=== PATIENT | female | born 1940 | race Caucasian/White ===

== ENCOUNTER 2017-05-02 13:34 | Inpatient (IN) | payer OTHER, BC ==
[~2017-05-02] VITALS: Ht 154.9 cm; Wt 71.6 kg
--- NOTE | 2017-05-02 14:03 | DIAGNOSTIC IMAGING REPORT ---
PROCEDURE: CT HEAD WITHOUT CONTRAST INDICATION: MENTAL STATUS CHANGE TECHNIQUE: Noncontrast axial images with sagittal and coronal reformations. COMPARISON: None. FINDINGS: There is moderate old small vessel disease of the white matter with a an old infarct in the right parietal cortex. Brain and ventricles are otherwise normal. No evidence of an acute process or hemorrhage. There is a 10 mm calcification along the inner table of the right frontal bone most likely representing a partially calcified meningioma (versus exostosis). Sinuses and mastoids are normal. IMPRESSION: 1. 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 2. There is a 10 mm calcification inner table of the right frontal bone which may represent a meningioma or exostosis. 3. No evidence of acute process. 4. Findings discussed with Dr. Gerardo Wiggins at [address] scans at this facility use dose modulation, iterative reconstruction, and/or weight-based dosing when appropriate to reduce radiation dose to as low as reasonably achievable.
--- NOTE | 2017-05-02 16:05 | DIAGNOSTIC IMAGING REPORT ---
PROCEDURE: XR CHEST 1 VIEW INDICATION: CHEST PAIN TECHNIQUE: Portable AP view (1430 hours). COMPARISON: None. FINDINGS: Lungs are clear. Heart and mediastinum are normal with tortuous descending thoracic aorta. Thorax is normal. IMPRESSION: 1. Negative chest (tortuous descending thoracic aorta) 2. Findings discussed with Dr. Wiggins.
--- NOTE | 2017-05-02 16:11 | ED ORDER SUMMARY ---
..... Patient: ERIC LUNDBERG OrderSheet [facility] VisitID: [id number] [place] [address] 77y, F Registration Date/Time: 05/02/2017 ORDER SHEET Weight: 69 kg (measured) Allergies: GENERAL ORDERS: CT Head wo Cont Urgent (13:45 05/02/2017 Iftikhar BONILLA) (13:51 DMacristianarka R.N.) Security Operations Engineer (Continuous) (13:46 05/02/2017 Iftikhar BONILLA) (13:51 DMacristianarka R.N.) Cardiac Panel Stat (13:46 05/02/2017 Iftikhar BONLILA) (13:51 DMacristianarka R.N.) PTT Urgent (13:46 05/02/2017 Iftikhar BONILLA) (13:51 DMacristianarka R.N.) PT with INR Urgent (13:46 05/02/2017 Iftikhar BONILLA) (13:51 Whitneya R.N.) BNP Urgent (13:46 05/02/2017 Iftikhar BONILLA) (13:51 Angiearka R.N.) Oxygen (2 L/min) (NC) (13:46 05/02/2017 Iftikhar BONILLA) (13:51 Whitneya R.N.) Pulse oximeter (13:46 05/02/2017 Iftikhar BONILLA) (13:51 Angiearka R.N.) EKG - ER Stat (13:46 05/02/2017 Iftikhar BONILLA) (13:51 Efrain R.N.) Chest 1V Urgent (14:05/02/2017 Iftikhar BONILLA) (Ack 14:13 Mireya) (15:47 Tru) Lipase Urgent (14:05/02/2017 Iftikhar BONILLA) (14:11 DMacristianarka R.N.) Amylase Urgent (14:05/02/2017 Iftikhar BONILLA) (14:11 DMaziarka R.N.) TSH Urgent (14:05/02/2017 Iftikhar BONILLA) (14:11 DMaziarka R.N.) CRP Urgent (14:07 05/02/2017 Iftikhar BONILLA) (14:11 Whitneya R.N.) ESR Urgent (14:07 05/02/2017 Iftikhar BONILLA) (14:11 Efrain R.N.) Lactate, Serum Urgent (14:07 05/02/2017 Iftikhar BONILLA) (Ack 14:14 Mireya) (14:26 DMamariaha R.N.) PCT (Procalcitonin) Urgent (14:07 05/02/2017 Iftikhar BONILLA) (14:10 Efrain R.N.) UA-Culture if indicated Urgent (14:20 05/02/2017 Iftikhar BONILLA) (Ack 14:22 Mireya) Urine Drug Screen Urgent (14:20 05/02/2017 Iftikhar BONILLA) (Ack 14:22 Mireya) MEDICATION ORDERS: IV FLUIDS: IV Saline Lock (13:46 05/02/2017 Iftikhar BONILLA) (Ack 13:55 Efrain R.N.) IV NS with Normal Saline 1 Liter: initial bolus 500 mL (1000 mL/hr), then 150 mL/hr for X1 (NOW) (14:15 05/02/2017 LAbmaik R.N. verbal order read back to Iftikhar BONILLA) (14:17 LAbmaik R.N.) ORDER SHEET NOTES: [Electronically signed by Gerardo Wiggins MD (18:06 05/02/2017)] [Electronically signed by Cris Alberto R.N. (18:11 05/02/2017)] [Electronically locked/signed by Cris Alberto R.N. (18:11 05/02/2017)]
--- NOTE | 2017-05-02 16:11 | ED NURSING NOTES ---
Clinical Report - Nurses [place] [address] [place] [address] 05/02/2017 13:36 Patient: ERIC LUNDBERG TRIAGE Triage time 1333. Acuity: LEVEL 2. Chief Complaint: WEAKNESS and (found unresponsive upon medic arrival. Became responsive but lethargic). --13:43 Martina Valdez R.N. 13:39 05/02/17. BP: 89/63. HR: 64. RR: 14. O2 saturation: 98%. Temp: 97.6 F. Pain level now 0/10. --13:43 Martina Valdez R.N. Weight: 69 kg measured. Height/Length: 61 inches Estimated. BMI: 28.8. --13:45 Martina Valdez R.N. Medications Namenda XR Oral. --13:56 Cris Alberto R.N. Pantoprazole Sodium Oral (Tablet Delayed Release 40 mg) 1 tablet, daily. --13:57 Cris Alberto R.N. Donepezil HCl Oral (Tablet 10 mg) 1 tablet. --13:57 Cris Alberto R.N. Losartan Potassium Oral (Tablet 50 mg) 1 tablet, daily. --13:58 Cris Alberto R.N. Carvedilol Phosphate ER Oral 25mg, morning and bedtime. --13:58 Cris Alberto R.N. Mirtazapine Oral (Tablet 15 mg) 1 tablet, at bedtime. --14:00 Cris Alberto R.N. Atorvastatin Calcium Oral (Tablet 80 mg) 1 tablet, daily. --14:00 Cris Alberto R.N. Xarelto Oral (Tablet 15 mg) 1 tablet. --14:01 Cris Alberto R.N. Cranberry Oral 4200 mg, daily. --14:01 Cris Alberto R.N. History Arrived by EMS. Historian: EMS. This started just prior to arrival. She has had altered mental status and weakness. PAST MEDICAL HX: Stroke. --13:43 Martina Valdez R.N. PAST MEDICAL HX: Hypertension. No history of diabetes mellitus. SOCIAL HX: Never smoker. No alcohol use or drug use. --13:48 Martina Valdez R.N. SOCIAL HX: ( Heart rate has been between 40-68 since she has been in the ED.). --16:06 Martina Valdez R.N. PROBLEMS: TIA - Transient Ischemic Attack. Tia. Stroke. --13:42 Martina Valdez R.N. ADDITIONAL SURGERIES: no known surgeries. PHYSICAL ASSESSMENT To room via stretcher. GENERAL / NEURO / PSYCH: Appears in distress. Decreased awareness. She has had weakness of the left arm. HEENT: No facial asymmetry noted. No signs of head trauma. --13:45 Martina Valdez R.N. NURSING PROGRESS NOTES Patient gowned. Call light placed in reach. Side rails up x 2. --13:46 Martina Valdez R.N. 13:42 05/02/2017 Site #1 started via IV in the left forearm with an 20g angiocath, with aseptic technique and good blood return; two attempts. Blood drawn: rainbow set. Labeled in the presence of the patient and sent to the lab (Per Emilia Whyte). --13:52 Martina Valdez R.N. 13:52 05/02/2017 Site #2 started via IV in the right antecubital space with an 18g angiocath; one attempt. Saline lock flushed with 10 mL saline. --13:53 Martina Valdez R.N. Patient transported to CT by stretcher with nurse and tech. (1350). --13:53 Martina Valdez R.N. Patient returned from CT by stretcher with nurse and tech. (13:54). --13:54 Martina Valdez R.N. 13:50 05/02/2017 Started bag #1 1000 mL IV Fluids IV NS (Saline); bolus of 500 mL then at 150 mL/hr via site #2 via IV pump. Allergies verified and confirmed 5 rights. IV patency established. IV site checked: no pain, redness, or swelling. IV flushed thoroughly pre- and post-medication administration. --14:17 Cris Alberto R.N. ( portable CXR). --14:26 Martina Valdez R.N. 16 fr solano catheter. Reason for indwelling catheter: patient's decreased level of consciousness. Return of 125 mL yellow-colored clear urine; attached to bedside drainage bag positioned below the bladder and secured with velcro and strap. She tolerated procedure well. --14:40 Martina Valdez R.N. 14:41 05/02/17. BP: 102/78. HR: 54. RR: 22. O2 saturation: 100%. Pain level now 0/10. --14:41 Martina Valdez R.N. ( Awake but lethargic answering questions.). Call light placed in reach. Side rails up x 2. Bed placed in lowest position. Brakes of bed on. --14:41 Martina Valdez R.N. 15:18 05/02/17. BP: 130/68. HR: 50. RR: 20. O2 saturation: 100%. Pain level now 0/10. --15:19 Martina Valdez R.N. Cardiac rhythm: sinus bradycardia; atrial fibrillation. --15:19 Martina Valdez R.N. 16:47 05/02/17. BP: 145/77. HR: 55. RR: 16. O2 saturation: 100%. Pain level now 0/10. --16:49 Martina Valdez R.N. The patient is calm and resting quietly. Overall patient status is improved. ( Dr. Vincent at the bedside with family). GENERAL / NEURO / PSYCH: Alert. Oriented X 4. --16:49 Martina Valdez R.N. 17:50 05/02/2017 IV Fluids IV NS Continued: upon transfer at the rate of 150 mL/hr. 300 mL remaining bag #1. IV patency established. IV site checked: no pain, redness, or swelling. IV flushed thoroughly. --18:10 Cris Alberot R.N. DISPOSITION / DISCHARGE 18:02 05/02/17. Departure time: 1750. Condition at departure: improved and stable. Admitted to Acute Care. Transported via stretcher by nurse. Report was given to a nurse via a phone call. Report included patient's care, treatment, medications, reviewed medication reconcilliation, and condition (including any recent changes or anticipated changes). All questions were answered. Report was acknowledged and care was transferred. (Flakita Dixon, METAL [employer] by HUDSON Reddy). ( family at bedside). --18:02 Roman Blas R.N. 18:01 05/02/17. BP: 143/82. HR: 62. RR: 16. O2 saturation: 100% on room air. Pain level now 0/10. --18:02 Roman Blas R.N. Locked/Released at 05/02/2017 18:11 by Cris Alberto R.N.
--- NOTE | 2017-05-02 16:11 | ED ORDER SUMMARY ---
..... Patient: ERIC LUNDBERG OrderSheet [facility] VisitID: [id number] [place] [address] 77y, F Registration Date/Time: 05/02/2017 ORDER SHEET Weight: 69 kg (measured) Allergies: GENERAL ORDERS: CT Head wo Cont Urgent (13:45 05/02/2017 Iftikhar BONILLA) (13:51 DMacristianarka R.N.) Cocoa Room Operator (Continuous) (13:46 05/02/2017 Iftikhar BONILLA) (13:51 DMacristianarka R.N.) Cardiac Panel Stat (13:46 05/02/2017 Iftikhar BONILLA) (13:51 DMacristianarka R.N.) PTT Urgent (13:46 05/02/2017 Iftikhar BONILLA) (13:51 DMacristianarka R.N.) PT with INR Urgent (13:46 05/02/2017 Iftikhar BONILLA) (13:51 Whitneya R.N.) BNP Urgent (13:46 05/02/2017 Iftikhar BONILLA) (13:51 Angiearka R.N.) Oxygen (2 L/min) (NC) (13:46 05/02/2017 Iftikhar BONILLA) (13:51 Whitneya R.N.) Pulse oximeter (13:46 05/02/2017 Iftikhar BONILLA) (13:51 Angiearka R.N.) EKG - ER Stat (13:46 05/02/2017 Iftikhar BONILLA) (13:51 Efrain R.N.) Chest 1V Urgent (14:05/02/2017 Iftikhar BONILLA) (Ack 14:13 Mireya) (15:47 Tru) Lipase Urgent (14:05/02/2017 Iftikhar BONILLA) (14:11 DMacristianarka R.N.) Amylase Urgent (14:05/02/2017 Iftikhar BONILLA) (14:11 DMaziarka R.N.) TSH Urgent (14:05/02/2017 Iftikhar BONILLA) (14:11 DMaziarka R.N.) CRP Urgent (14:07 05/02/2017 Iftikhar BONILLA) (14:11 Whitneya R.N.) ESR Urgent (14:07 05/02/2017 Iftikhar BONILLA) (14:11 Efrain R.N.) Lactate, Serum Urgent (14:07 05/02/2017 Iftikhar BONILLA) (Ack 14:14 Mireya) (14:26 DMamariaha R.N.) PCT (Procalcitonin) Urgent (14:07 05/02/2017 Iftikhar BONILLA) (14:10 Efrain R.N.) UA-Culture if indicated Urgent (14:20 05/02/2017 Iftikhar BONILLA) (Ack 14:22 Mireya) Urine Drug Screen Urgent (14:20 05/02/2017 Iftikhar BONILLA) (Ack 14:22 Mireya) MEDICATION ORDERS: IV FLUIDS: IV Saline Lock (13:46 05/02/2017 Iftikhar BONILLA) (Ack 13:55 Efrain R.N.) IV NS with Normal Saline 1 Liter: initial bolus 500 mL (1000 mL/hr), then 150 mL/hr for X1 (NOW) (14:15 05/02/2017 LAbmaik R.N. verbal order read back to Iftikhar BONILLA) (14:17 LAbmaik R.N.) ORDER SHEET NOTES: [Electronically signed by Gerardo Wiggins MD (18:06 05/02/2017)] [Electronically signed by Cris Alberto R.N. (18:11 05/02/2017)] [Electronically locked/signed by Cris Alberto R.N. (18:11 05/02/2017)]
--- NOTE | 2017-05-02 16:11 | ED CLINICAL REPORT ---
Clinical Report - Physicians/Mid Levels [facility] [address] [place] [address] 05/02/2017 13:36 Patient: ERIC LUNDBERG Time Seen: 13:41 May 02 2017. Arrived- By ambulance. Historian- patient and EMS personnel. CPT: ER phys charges level 5 plus (#[id number]). EKG interpretation (#[id number]). HISTORY OF PRESENT ILLNESS Chief Complaint: CHEST PAIN. WEAKNESS Syncope. At its maximum, severity described as moderate. When seen in the E.D., severity described as moderate. Modifying factors. Not relieved by anything. This started today "just feels tired" and is still present. Onset during light activity. It is described as pressure and it is described as located in the epigastric area. No nausea, vomiting, difficulty breathing or diaphoresis. Similar symptoms previously: None. Recent medical care: Not recently seen/assessed. REVIEW OF SYSTEMS No fever, chills, cough, pedal edema or calf pain. No fainting episodes, sore throat, black stools, difficulty with urination or skin rash. No enlarged lymph nodes. She has had abdominal pain. All systems otherwise negative, except as recorded above. PAST HISTORY See nurses notes. Hypertension. Hyperlipidemia. Dementia CVA TIA Lactic acidosis sepsis decubitus ulcer Uti. Additional Surgeries: no known surgeries. Medications: Cranberry Oral 4200 mg, daily. Xarelto Oral (Tablet 15 mg) 1 tablet. Atorvastatin Calcium Oral (Tablet 80 mg) 1 tablet, daily. Mirtazapine Oral (Tablet 15 mg) 1 tablet, at bedtime. Carvedilol Phosphate ER Oral 25mg, morning and bedtime. Losartan Potassium Oral (Tablet 50 mg) 1 tablet, daily. Donepezil HCl Oral (Tablet 10 mg) 1 tablet. Pantoprazole Sodium Oral (Tablet Delayed Release 40 mg) 1 tablet, daily. Namenda XR Oral. SOCIAL HISTORY Never smoker. No alcohol use or drug use. ADDITIONAL NOTES The nursing notes have been reviewed. PHYSICAL EXAM Vital Signs: 05/02/2017 13:39 BP: 89/63. HR: 64. RR: 14. O2 saturation: 98%. Temp: 97.6 F. Appearance: No acute distress. Lethargic. Eyes: Eyes normal inspection. ENT: Dry mucous membranes present. Pharynx normal. Neck: Normal inspection. Neck supple. No meningeal signs. CVS: Bradycardia. Heart sounds normal. Pulses normal. No cardiac murmur. Respiratory: No respiratory distress. Breath sounds normal. Chest nontender. Abdomen: Soft. Moderate tenderness in the epigastric area. Bowel sounds normal. Back: Normal external inspection. Skin: Skin warm. Normal skin color. No rash. Extremities: Extremities exhibit normal ROM. No lower extremity edema. Neuro: No motor deficit. No sensory deficit. Reflexes normal. NIH Stroke Scale: score 2. Level of Consciousness: drowsy (1). LOC Questions: both (0). LOC Commands: both (0). Best gaze: normal (0). Visual field loss: none (0). Facial palsy: normal (0). Motor arm: no drift right arm (0) and no drift left arm (0). Motor leg: no drift right leg (0) and no drift left leg (0). Limb ataxia: none (0). Sensory loss: none (0). Aphasia: none (0). Dysarthria: mild to moderate (1). Extinction and inattention: none (0). LABS, X-RAYS, AND EKG EKG: Rate: 50. Atrial fibrillation. Bradycardia. LVH. Moderate T wave inversion in lead I, aVL, V5 and V6- consistent with ischemia. Prior EKG unavailable. The study has been interpreted contemporaneously. The study has been independently viewed by me. The EKG appears to be a good tracing. Chest X-ray: (Tortuous aorta, descending). Views: AP (portable). Technique: good. The X-rays were independently viewed by me and interpreted contemporaneously by me. CT Head: (old right parietal infarct. Meningioma.). The study was independently viewed by me, interpreted by the radiologist and discussed with the radiologist. Laboratory Tests: UA-Culture if indicated: (CHULA: 05/02/2017 14:35) ( MsgRcvd 05/02/2017 15:17) Final results Test Result Flag Units (Reference) URINE COLOR YELLOW URINE APPEARANCE CLEAR URINE GLUCOSE NEGATIVE (NEGATIVE) URINE BILIRUBIN NEGATIVE (NEGATIVE) URINE KETONE NEGATIVE (NEGATIVE) URINE SPECIFIC GRAVITY 1.020 (1.010-1.030) URINE PH 6.0 (5.0-8.0) URINE PROTEIN NEGATIVE (NEGATIVE) URINE UROBILINOGEN 0.2 EU/dL (0.2-1.0) URINE NITRITE NEGATIVE (NEGATIVE) URINE BLOOD NEGATIVE (NEGATIVE) URINE LEUK ESTERASE NEGATIVE (NEGATIVE) URINE RBC RARE rbc/hpf (0-1) URINE WBC RARE wbc/hpf (0-1) URINE EPITHELIAL CELLS 0-1 EPI/hpf (0-5) URINE BACTERIA NONE SEEN (NONE SEEN) URINE COMMENT CULT NOT INDICATED URINE CULTURES ARE SET-UP BASED ON THE FOLLOWING CRITERIA:POSITIVE NITRITEPOSITIVE LEUKOCYTE ESTERASEGREATER THAN 10 WHITE BLOOD CELLSMODERATE (2+) OR GREATER BACTERIA ESR: (CHULA: 05/02/2017 14:23) ( [facility] 05/02/2017 14:41) Final results Test Result Flag Units (Reference) SED RATE WESTERGREN 17 mm/hr (0-30) CBC w Diff: (CHULA: 05/02/2017 13:45) ( [facility] 05/02/2017 13:55) Final results Test Result Flag Units (Reference) WHITE BLOOD COUNT 8.0 K/uL (4.5-11.5) RED BLOOD COUNT 4.45 M/uL (4.00-5.20) HEMOGLOBIN 13.7 gm/dL (12.0-16.0) HEMATOCRIT 41.7 % (36.0-46.0) MEAN CELL VOLUME 94 fL (80-100) MEAN CORPUSCULAR HGB 31 pg (26-34) MEAN CORPUSCULAR HGB CONC 33 g/dL (31-37) RED CELL DISTRIBUTION WIDTH 14.3 % (11.6-14.8) PLATELET COUNT 197 K/uL (150-400) NEUTROPHIL % 69.0 % (50-75) LYMPH % 21.4 L % (25-40) MONO % 8.6 % (3-14) EOSINOPHIL % 0.6 % (0-4) BASOPHIL % 0.4 % (0-2) PT with INR: (CHULA: 05/02/2017 13:45) ( [facility] 05/02/2017 14:05) Final results Test Result Flag Units (Reference) INR 1.3 H (0.8-1.2) Low Intensity Therapy: INR 1.5-2.0 PT range 18.5-23.1Mod.Intensity Therapy: INR 2.0-3.0 PT range 23.1-31.5High Intensity Therapy: INR 2.5-3.5 PT range 27.4-35.5High Intensity Therapy 2: INR 3.0-4.0 PT range 31.5-39.3 APTT 32 SECONDS (24-34) Urine Drug Screen: (CHULA: 05/02/2017 14:35) ( [facility] 05/02/2017 15:09) Final results Test Result Flag Units (Reference) AMPHETAMINE/METHAMPHETAMINE NEGATIVE (NEGATIVE) BARBITURATE NEGATIVE (NEGATIVE) BENZODIAZEPINE NEGATIVE (NEGATIVE) CANNABINOID NEGATIVE (NEGATIVE) COCAINE NEGATIVE (NEGATIVE) ECSTASY NEGATIVE (NEGATIVE) METHADONE NEGATIVE (NEGATIVE) OPIATE NEGATIVE (NEGATIVE) The urine drug screen is a qualitative screening test fordrug overdose and abuse. All screen results should beconsidered as presumptive.Drugs screened for are as follows:BenzodiazepinesCocaineAmphetamines/MetamphetaminesTHC (Tetrahydrocannabinol)OpiatesBarbituratesEcstasyMethadonePositive results are unconfirmed. For confirmation, notifythe lab for the specimen to be sent to the reference lab.All confirmations must be performed by a differentmethodology.The ingestion of natural herbal and plant productscontaining Ephedra/Ephedra metabolites can produce in urineone or more substances capable of cross reacting withamphetamine/methamphetamine immunoassays. These testsprovide a preliminary result only. A more specificalternative chemical method must be used to obtain aconfirmed analytical result. [id number]: (CHULA: 05/02/2017 14:23) ( [facility] 05/02/2017 15:01) Final results Test Result Flag Units (Reference) C-REACTIVE PROTEIN < 0.2 mg/dL (0.0-0.9) Lactate, Serum: (CHULA: 05/02/2017 14:23) ( [facility] 05/02/2017 14:58) Final results Test Result Flag Units (Reference) LACTIC ACID 2.1 H mmol/L (0.4-2.0) CRITICAL RESULTS CALLEDCalled to NOT CRITICAL 05/02/17 1457Were 2 patient identifiers used? NOT CRITICALWas the result read back? NOT CRITICAL TSH: (CHULA: 05/02/2017 14:09) ( [facility] 05/02/2017 15:33) Final results Test Result Flag Units (Reference) THYROID STIMULATING HORMONE 2.270 uIU/mL (0.30-3.74) Lipase: (CHULA: 05/02/2017 14:09) ( [facility] 05/02/2017 15:34) Final results Test Result Flag Units (Reference) LIPASE 353 U/L (73-393) AMYLASE 83 U/L (25-115) BNP: (CHULA: 05/02/2017 13:45) ( [facility] 05/02/2017 14:15) Final results Test Result Flag Units (Reference) B-TYPE NATRIURETIC PEPTIDE 217 H pg/ml (5-100) CHEM 13 PANEL: (CHULA: 05/02/2017 13:45) ( [facility] 05/02/2017 14:39) Final results Test Result Flag Units (Reference) GLUCOSE 183 H mg/dL (70-110) BUN 23 H mg/dL (7-18) CREATININE 1.3 mg/dL (0.6-1.3) Estimated GFR 42.00 mL/min Estimated GFR- 50.90 mL/min Note: Persistent reduction over 3 months in eGFR<60 mL/min/1.73 m2 defines CKD. Patients with eGFR values>=60 mL/min/1.73 m2 may also have CKD if evidence ofpersistent proteinuria. Additional information may be foundat www.kidney.org. SODIUM 146 H mmol/L (136-145) POTASSIUM 3.9 mmol/L (3.5-5.1) CHLORIDE 109 H mmol/L (98-107) CARBON DIOXIDE 27 mmol/L (21-32) CALCIUM 8.8 mg/dL (8.5-10.1) TOTAL PROTEIN 6.9 g/dL (6.4-8.2) ALBUMIN 3.3 g/dL (3.3-5.0) BILIRUBIN, TOTAL 0.8 mg/dL (0.0-1.0) ALKALINE PHOSPHATASE 85 U/L (46-116) AST (SGOT) 25 U/L (15-37) ALT (SGPT) 25 U/L (12-78) MAGNESIUM 2.2 mg/dL (1.8-2.4) CPK 56 U/L (24-260) TROPONIN I <0.05 ng/mL (0.00-1.5) TROPONIN REFERENCE RANGE:<0.1 NEGATIVE0.1-1.5 INDETERMINANT>1.5 POSITIVE . PROGRESS AND PROCEDURES Course of Care: Pt arrived lethargic with low BP and at times a pulse in the 45 range, a-fib rhythm. daughter arrived and notes the patient had been considered for pacemaker several months ago but this was not done due to some complication at the time. She also notes that the patient had a TIA about a month ago while in [place] and had a stroke that was large about a year ago on Mother's Day. Note the patient has dementia but she is able to converse and ambulate and take care of herself most of the time. daughter indicates that the patient was her normal self this morning at the breakfast table when she just slumped over and became unresponsive. Patient is better by the time she arrived to the ER she is now able to answer questions and open her eyes as well as follow commands. Her blood pressure appears to be improving with the IV fluids. She still has bradycardia but this is apparently chronic. Patient does not have a floral artist. She is supposed to be set up to see one. Discussed case with on-call health care provider, (Carlton). Reviewed test results. Agreed upon treatment plan and decision to admit. Patient/family counseled. Old medical records ordered. Disposition orders written. Disposition: Admitted to Acute Care. CLINICAL IMPRESSION Syncope of unknown cause .12 lead EKG performed. Bradycardia Atrial fibrillation Epigastric abdominal pain EKG changes Hypotension. (Electronically signed by Gerardo Wiggins MD 05/02/2017 18:06)
--- NOTE | 2017-05-02 18:12 | ED DISCHARGE INSTRUCTIONS ---
Patient: ERIC LUNDBERG General Instructions [facility] VisitID: [id number] [place] [address] 77y, F Registration Date/Time: 05/02/2017 Syncope of unknown cause .12 lead EKG performed. Bradycardia Atrial fibrillation Epigastric abdominal pain EKG changes Hypotension. ADDITIONAL INFORMATION Fainting:Uncertain Cause Fainting (syncope) is a temporary loss of consciousness ("passing out"). It occurs when blood flow to the brain is reduced. Near-fainting ("near-syncope") is very similar to fainting, but you do not fully "pass out". The common minor causes of fainting include: sudden fear, pain, nausea, emotional stress and overexertion. Suddenly standing up after sitting or lying for a long time can also cause fainting. The more serious causes for fainting are due to either a very slow or very fast or very slow heart beat ("arrhythmia"), other types of heart disease, dehydration, blood loss, seizure, stroke or ruptured blood vessel in the brain. Taking too much high blood pressure medicine can also cause low blood pressure and fainting. The exact cause of your episode is not certain. However, the tests today did not show any of the serious causes of fainting. Sometimes further testing is needed to find out if a serious problem exists. Therefore, it is important that you follow-up with your doctor as advised. Home Care: 1) Rest today. You may resume your normal activities when you are feeling back to normal. It is best to remain with someone who can check on you for the next 24 hours to watch for another episode of fainting. 2) If you become light-headed or dizzy, lie down immediately or sit with your head between your knees. 3) Because we do not know the exact cause of your near fainting spell, it is possible for another spell to occur without warning. Therefore, do not drive a car or operate dangerous equipment, do not take a bath alone (use a shower instead) and do not swim alone until your doctor says that you are no longer in danger of having another fainting spell. Follow Up with your doctor as advised. Get Prompt Medical Attention if any of the following occur: -- Another fainting spell occurs, which is not explained by the common causes listed above -- Chest, arm, neck, jaw, back or abdominal pain -- Shortness of breath -- Severe headache or seizure -- Blood in vomit, stools (black or red color) -- Unexpected vaginal bleeding -- Palpitations (very rapid or very slow or irregular heart beat) -- Signs of stroke: Weakness of an arm or leg or one side of the face Difficulty with speech or vision Extreme drowsiness, confusion, dizziness or fainting You have been given the following additional information: Syncope, Unk Cause (Electronically signed by Gerardo Wiggins MD 05/02/2017 18:06)
--- NOTE | 2017-05-02 18:12 | ED MAR SUMMARY ---
..... Medication Administration Record [facility] [address] [place] [address] Patient: ERIC LUNDBERG Visit ID: [id number] 77y, F Weight: 69.0 kg Height/Length: 61 in BMI: 28.8 ALLERGIES: Start 13:50 05/02/2017 Cris Alberto R.N., Continued Upon Transfer 17:50 05/02/2017 Cris Alberto R.N. Medication Administered: IV NS (SALINE), Dose: IV Fluids, Rate: 150 mL/hr, Bolus: 500 mL, Dispensed: 1000 mL bag, Site: #2. Medication Ordered: IV NS with Normal Saline 1 Liter: initial bolus 500 mL (1000 mL/hr), then 150 mL/hr for X1 (NOW).
--- NOTE | 2017-05-02 18:12 | ED MED RECONCILIATION SUMMARY ---
Patient: ERIC LUNDBERG Medication Reconciliation Report [facility] VisitID: [id number] [address] [place] [address] 77y, F Registration Date/Time: 05/02/2017 Weight: 69 kg Height/Length: 61 in. BMI: 28.8 ALLERGIES: The patient's Home Medications are listed below: THE FOLLOWING MEDICATIONS NEED TO BE RECONCILED: Atorvastatin Calcium Oral (80 mg) 1 tablet, daily Carvedilol Phosphate ER Oral 25mg, morning and bedtime Cranberry Oral 4200 mg, daily Donepezil HCl Oral (10 mg) 1 tablet Losartan Potassium Oral (50 mg) 1 tablet, daily Mirtazapine Oral (15 mg) 1 tablet, at bedtime Namenda XR Oral Pantoprazole Sodium Oral (40 mg) 1 tablet, daily Xarelto Oral (15 mg) 1 tablet The source(s) of the original Home Medication information: Not obtained. The following Medications were given to the patient in the Emergency Department: IV NS IV Fluids bolus 500 mL, then 150 mL/hr, administered: 05/02/2017 1:50:00 PM The following Medications were prescribed to the patient: None.
--- NOTE | 2017-05-02 18:12 | ED MAR SUMMARY ---
..... Medication Administration Record [facility] [address] [place] [address] Patient: ERIC LUNDBERG Visit ID: [id number] 77y, F Weight: 69.0 kg Height/Length: 61 in BMI: 28.8 ALLERGIES: Start 13:50 05/02/2017 Cris Alberto R.N., Continued Upon Transfer 17:50 05/02/2017 Cris Alberto R.N. Medication Administered: IV NS (SALINE), Dose: IV Fluids, Rate: 150 mL/hr, Bolus: 500 mL, Dispensed: 1000 mL bag, Site: #2. Medication Ordered: IV NS with Normal Saline 1 Liter: initial bolus 500 mL (1000 mL/hr), then 150 mL/hr for X1 (NOW).
--- NOTE | 2017-05-02 18:12 | ED MED RECONCILIATION SUMMARY ---
Patient: ERIC LUNDBERG Medication Reconciliation Report [facility] VisitID: [id number] [address] [place] [address] 77y, F Registration Date/Time: 05/02/2017 Weight: 69 kg Height/Length: 61 in. BMI: 28.8 ALLERGIES: The patient's Home Medications are listed below: THE FOLLOWING MEDICATIONS NEED TO BE RECONCILED: Atorvastatin Calcium Oral (80 mg) 1 tablet, daily Carvedilol Phosphate ER Oral 25mg, morning and bedtime Cranberry Oral 4200 mg, daily Donepezil HCl Oral (10 mg) 1 tablet Losartan Potassium Oral (50 mg) 1 tablet, daily Mirtazapine Oral (15 mg) 1 tablet, at bedtime Namenda XR Oral Pantoprazole Sodium Oral (40 mg) 1 tablet, daily Xarelto Oral (15 mg) 1 tablet The source(s) of the original Home Medication information: Not obtained. The following Medications were given to the patient in the Emergency Department: IV NS IV Fluids bolus 500 mL, then 150 mL/hr, administered: 05/02/2017 1:50:00 PM The following Medications were prescribed to the patient: None.
--- NOTE | 2017-05-02 18:27 | History & Physical Report ---
History Chief Complaint Syncope History of Present Illness This is a 77-year-old [place] female who was sitting on the chair at 1:15 PM today suddenly slammed down and passed out. Syncope lasted for 7 minutes and family called EMS and patient was transferred to emergency. No dizziness no chest pain no shortness of breath no palpitations. At first it was thought that patient is having a stroke but workup in the ER shows the patient is severely bradycardic. Patient History 1. Afib 2. HTN (hypertension) 3. PUD (peptic ulcer disease) 4. Stroke 5. Hyperlipidemia 6. Dementia Social History Patient is . She has 3 kids. She lives with her daughter. Smoking: None, alcohol call him none, illicit drugs, none. Family History No Known Family History. Medications and Allergies Medications Current Medications Sig/Lita Start time Last Medication Dose Route Stop Time Status Admin Donepezil HCl 10 MG DAILY 05/03 0900 UNV PO Memantine 10 MG DAILY 05/03 0900 UNV PO Rivaroxaban 15 MG DAILY 05/03 0900 UNV PO Pantoprazole Sodium 40 MG DAILY@0600 05/03 0600 UNV IV Mirtazapine 15 MG QHS 05/02 2100 UNV PO Atorvastatin Calcium 80 MG QPM 05/02 1800 UNV PO Insts (1) IV SL Dose Instructions: (1)Lidocaine HCl: 1.5 MG/KG Allergies Coded Allergies: NKA (05/02/17) Review of Systems Other No recent weight changes, no difficulty with vision or hearing, runny nose, no cough sputum or phlegm or sore throat, cardiopulmonary symptoms as a bowel, no nausea no vomiting no indigestion no abdominal pain normal regular bowel movements, no dysuria or frequency but has incontinence, no arthralgia or myalgia, no headaches no dizziness no tingling or numbness no localized weakness Physical Exam General Appearance Alert, Oriented X3, No acute distress HEENT Normal exam Lungs Clear to auscultation Neck Supple, No JVD, 2+ carotid pulse wo bruit Cardiovascular Regular rate and rhythm, Normal S1 and S2, No murmurs, gallops, rubs Abdomen Normal bowel sounds, Soft, No tenderness Extremities No cyanosis, No edema, Normal pulses Skin No Rashes, No Significant Lesions Neurological Normal speech, Normal tone, Reflexes 2+ and equal, Cranial nerves intact, Strength 5/5 x4 ext's Psych/Mental Status Mental status normal, Mood normal LAB Results Laboratory Tests 05/02 05/02 05/02 05/02 1710 1435 1423 1423 Chemistry Lactic Acid (0.4 - 2.0 mmol/L) 2.1 Troponin (0.00 - 1.5 ng/mL) <0.05 Procalcitonin (0 - 0.5 ng/mL) <0.5 Toxicology Urine Opiates Screen (NEGATIVE) NEGATIVE Urine Methadone Screen (NEGATIVE) NEGATIVE Ur Barbiturates Screen (NEGATIVE) NEGATIVE U Amphetamin/Meth Scrn (NEGATIVE) NEGATIVE MDMA (Ecstasy) Screen (NEGATIVE) NEGATIVE U Benzodiazepines Scrn (NEGATIVE) NEGATIVE Urine Cocaine Screen (NEGATIVE) NEGATIVE U Cannabinoids Screen (NEGATIVE) NEGATIVE Urines Urine Color YELLOW Urine Appearance CLEAR Urine pH (5.0 - 8.0) 6.0 Ur Specific [place] (1.010 - 1.030) 1.020 Urine Protein (NEGATIVE) NEGATIVE Urine Ketones (NEGATIVE) NEGATIVE Urine Blood (NEGATIVE) NEGATIVE Urine Nitrite (NEGATIVE) NEGATIVE Urine Bilirubin (NEGATIVE) NEGATIVE Urine Urobilinogen (0.2 - 1.0 EU/dL) 0.2 Ur Leukocyte Esterase (NEGATIVE) NEGATIVE Urine RBC (0 - 1 rbc/hpf) RARE Urine WBC (0 - 1 wbc/hpf) RARE Ur Epithelial Cells (0 - 5 EPI/hpf) 0-1 Urine Bacteria (NONE SEEN) NONE SEEN Urine Glucose (NEGATIVE) NEGATIVE Urine Comment CULT NOT INDICATED 05/02 05/02 05/02 05/02 05/02 1423 1409 1409 1345 1345 Chemistry Plasma Sodium (136 - 145 mmol/L) 146 Plasma Potassium (3.5 - 5.1 mmol/L) 3.9 Plasma Chloride (98 - 107 mmol/L) 109 CO2 (Enzymatic) (21 - 32 mmol/L) 27 BUN (7 - 18 mg/dL) 23 Creatinine (0.6 - 1.3 mg/dL) 1.3 Est GFR ( Amer) (mL/min) 50.90 Est GFR (Non-Af Amer) (mL/min) 42.00 Glucose (70 - 110 mg/dL) 183 Plasma Calcium (8.5 - 10.1 mg/dL) 8.8 Plasma Magnesium (1.8 - 2.4 mg/dL) 2.2 Total Bilirubin (0.0 - 1.0 mg/dL) 0.8 AST (15 - 37 U/L) 25 ALT (12 - 78 U/L) 25 Alkaline Phosphatase (46 - 116 U/L) 85 Creatine Kinase (24 - 260 U/L) 56 Troponin (0.00 - 1.5 ng/mL) <0.05 C-Reactive Protein (0.0 - 0.9 mg/dL) < 0.2 B-Natriuretic Peptide (5 - 100 pg/ml) 217 Total Protein (6.4 - 8.2 g/dL) 6.9 Albumin (3.3 - 5.0 g/dL) 3.3 Amylase (25 - 115 U/L) 83 Lipase (73 - 393 U/L) 353 TSH 3rd Generation (0.30 - 3.74 uIU/mL) 2.270 Coagulation INR (0.8 - 1.2) 1.3 APTT (24 - 34 SECONDS) 32 Hematology WBC (4.5 - 11.5 K/uL) 8.0 RBC (4.00 - 5.20 M/uL) 4.45 Hgb (12.0 - 16.0 gm/dL) 13.7 Hct (36.0 - 46.0 %) 41.7 MCV (80 - 100 fL) 94 MCH (26 - 34 pg) 31 RDW (11.6 - 14.8 %) 14.3 Neut % (Auto) (50 - 75 %) 69.0 Lymph % (Auto) (25 - 40 %) 21.4 [place] % (Auto) (3 - 14 %) 8.6 Eos % (Auto) (0 - 4 %) 0.6 Baso % (Auto) (0 - 2 %) 0.4 Plt Count, EDTA (150 - 400 K/uL) 197 PUBS MCHC (31 - 37 g/dL) 33 ESR Westergren (0 - 30 mm/hr) 17 Microbiology Date/Time Procedure - Status Source Growth 05/02 1800 MRSA Screen - ORD NOSE Assessment and Plan Problem List 1. Bradycardia Plan will hold Coreg, lisinopril, since hypotensive, telemetry 2. Syncope Plan this is most probably due to first problem, CT of head was negative 3. Afib Plan controlled 4. HTN (hypertension) Plan controlled 5. Dementia
--- NOTE | 2017-05-02 18:29 | Progress Note ---
Subjective General ADVANCED CARE PLAN History of Present Illness [ ] A discussion was undertaken with the patient regarding previous advance care arrangements/decisions. The following advanced directives were noted by the patient and discussed with me at the time of admission. ADVANCED DIRECTIVES: 1. Living well: Yes 2. POLST: No 3. CODE STATUS: Full code 4. 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 Donor card: No The patient has expressed interest in pursuing full resuscitative efforts at the time of cardiopulmonary arrest. The patient has been placed on a FULL CODE STATUS. The patient's wishes were documented in the chart and orders regarding the patient's wishes entered into the [employer] system. The "Advance Care Plan Document" was not distributed to patient to discuss with her family. Less than 30 minutes was spent in performing the above tasks and documentation of the patient's advanced care plan.
--- NOTE | 2017-05-02 18:29 | Progress Note ---
Subjective General ADVANCED CARE PLAN History of Present Illness [ ] A discussion was undertaken with the patient regarding previous advance care arrangements/decisions. The following advanced directives were noted by the patient and discussed with me at the time of admission. ADVANCED DIRECTIVES: 1. Living well: Yes 2. POLST: No 3. CODE STATUS: Full code 4. Durable Power Splitter Head Health care: Yes 5. Donor card: No The patient has expressed interest in pursuing full resuscitative efforts at the time of cardiopulmonary arrest. The patient has been placed on a FULL CODE STATUS. The patient's wishes were documented in the chart and orders regarding the patient's wishes entered into the [employer] CPOE system. The "Advance Care Plan Document" was not distributed to patient to discuss with her family. Less than 30 minutes was spent in performing the above tasks and documentation of the patient's advanced care plan.
[2017-05-02 18:48] VITALS: BP 125/72
[2017-05-02 19:56] VITALS: BP 155/72
[2017-05-02] MEDS ORDERED: MIRTAZAPINE15 MG PO (20:06)
[2017-05-02] MEDS ORDERED: XARELTO10 MG PO (20:06)
[2017-05-02] MEDS ORDERED: PANTOPRAZOLE SO40 MG PO (20:07)
[2017-05-02] MEDS ORDERED: LIPITOR80 MG PO (20:08)
[2017-05-02] MEDS ORDERED: CARVEDILOL25 MG PO (20:09)
[2017-05-02] MEDS ORDERED: NAMENDA10 MG PO (20:09)
[2017-05-02] MEDS ORDERED: DONEPEZIL HCL10 M1 PO (20:10)
[2017-05-02] MEDS ORDERED: CRANBERRY EXTR250 MG (20:11)
[2017-05-02] MEDS ORDERED: GAS-X80 MG PO (20:11)
[2017-05-02] MEDS ORDERED: COZAAR50 MG PO (20:11)
[2017-05-02] MEDS ORDERED: DOCUSATE SODIU100 MG PO (20:12)
[2017-05-02 20:14] VITALS: BP 146/80
[2017-05-02 20:59] VITALS: BP 155/81
[2017-05-02 22:12] VITALS: BP 167/82
[2017-05-03 02:02] VITALS: BP 146/88
--- NOTE | 2017-05-03 06:36 | Progress Note ---
Subjective General Note Date: May 03, 2017 Admission Date: May 02, 2017 Hospital Day: 2 PCP: Bean chacon Status: Inpatient, ACU Advanced Directive:: Room: 301 Admission History: The patient is a 77-year-old white female with a significant past make a history of atrial fibrillation, hypertension, peptic ulcer disease, cerebrovascular disease status post CVA, hyperlipidemia, dementia, who presented to [facility] emergency department on the day of admission secondary to complaints of syncope. [facility] ER evaluation was consistent with bradycardia, hypotension, and associated syncope. Secondary to the above, the patient was admitted by Clint Vincent M.D. for further evaluation and treatment. For other history present illness, past medical history, family history, social history, review of systems, and admission physical examination please see the patient's history and physical examination and ER visit note in the patient's medical record. Subjective: The patient states she is doing well today. No episodes of lightheadedness. Overall feels much better. Patient requests: None Medications and Allergies Medications Current Medications Sig/Lita Start time Last Medication Dose Route Stop Time Status Admin Donepezil HCl 10 MG DAILY 05/03 0900 AC PO Memantine 10 MG DAILY 05/03 0900 AC PO Rivaroxaban 15 MG DAILY 05/03 0900 AC PO Pantoprazole Sodium 40 MG DAILY@0600 05/03 0600 AC 05/03 IV 0524 Mirtazapine 15 MG QHS 05/02 2100 AC 05/02 PO 2107 Atorvastatin Calcium 80 MG QPM 05/02 2000 AC 05/02 PO 2107 Al Hydrox/Mg Hydrox/ 15 ML Q1H PRN 05/02 1700 AC Simethicone PO Atropine Sulfate 0.5 MG Q3MIN PRN 05/02 1700 AC IV Dextrose/Sodium 1,000 ML ASDIRECTED 05/02 170 AC 05/02 Chloride IV 2311 Lidocaine HCl See Dose ONCE PRN 05/02 170 AC Insts (1) IV Magnesium Hydroxide 10 ML DAILY PRN 05/02 1700 AC PO Morphine Sulfate 2 MG Q3M PRN 05/02 1700 AC IV Nitroglycerin 0.4 MG Q5M PRN 05/02 1700 AC SL Dose Instructions: (1)Lidocaine HCl: 1.5 MG/KG Allergies Coded Allergies: NKA (05/02/17) Reconcile Medications Scheduled Medications Atorvastatin Calcium (Lipitor 80 MG) 80 MG TAB 80 MG PO DAILY (Reported) Carvedilol (Carvedilol 25 MG) 25 MG TAB 25 MG PO DAILY (Reported) Donepezil Hydrochloride (Donepezil HCl 10 MG) 10 MG TAB 10 MG PO DAILY ( Reported) Losartan Potassium (Cozaar 50 MG) 50 MG TAB 50 MG PO DAILY (Reported) Memantine Hydrochloride (Namenda 10 MG) 10 MG TAB 28 MG PO DAILY (Reported) Mirtazapine (Mirtazapine 15 MG) 15 MG TAB 15 MG PO QHS (Reported) Pantoprazole Sodium (Pantoprazole Sodium 40 MG) 40 MG TAB 40 MG PO DAILY ( Reported) Rivaroxaban (Xarelto 10 MG) 10 MG TAB 15 MG PO DAILY (Reported) Scheduled PRN Medications Docusate Sodium (Docusate Sodium 100 MG) 100 MG CAP 100 MG PO DAILY PRN CONSTIPATION (Reported) Miscellaneous Medications Cranberry (Cranberry Extract) 250 MG TAB (Reported) Simethicone (Gas-X) 80 MG CHW GAS (Reported) Physical Exam Vital Signs / I&Os Vital Signs Date Time Temp Pulse Resp B/P Pulse O2 O2 Flow FiO2 Ox Delivery Rate 05/03 020 97.7 69 14 146/88 100 Room Air 05/02 2218 98.8 05/02 2212 64 20 167/82 100 Room Air 05/02 2059 64 20 155/81 99 Room Air 05/02 2014 63 146/80 100 Room Air 05/02 1956 97.7 65 22 155/72 98 Room Air 05/02 1848 97.5 80 20 125/72 100 Room Air I&O 05/03 0000 05/02 1600 05/02 0800 Intake Total Output Total 400 Balance -400 General Appearance Alert, Oriented X3, Cooperative, No acute distress Lungs Clear to auscultation, Normal air movement Cardiovascular Regular rate and rhythm, Normal S1 and S2 Abdomen Normal bowel sounds, Soft, No tenderness Extremities No cyanosis, No clubbing Neurological Cranial nerves intact, No lateralizing signs Psych/Mental Status Mental status normal, Mood normal LAB Results Laboratory Tests 05/03 05/03 05/02 05/02 0505 0115 1710 1435 Chemistry Plasma Sodium (136 - 145 mmol/L) 146 Plasma Potassium (3.5 - 5.1 mmol/L) 3.5 Plasma Chloride (98 - 107 mmol/L) 113 CO2 (Enzymatic) (21 - 32 mmol/L) 27 BUN (7 - 18 mg/dL) 14 Creatinine (0.6 - 1.3 mg/dL) 0.8 Est GFR ( Amer) (mL/min) >60 Est GFR (Non-Af Amer) (mL/min) >60 Glucose (70 - 110 mg/dL) 104 Plasma Calcium (8.5 - 10.1 mg/dL) 7.7 Troponin (0.00 - 1.5 ng/mL) <0.05 <0.05 TSH 3rd Generation (0.30 - 3.74 uIU/mL) 2.158 Hematology WBC (4.5 - 11.5 K/uL) 6.8 RBC (4.00 - 5.20 M/uL) 3.84 Hgb (12.0 - 16.0 gm/dL) 11.8 Hct (36.0 - 46.0 %) 35.8 MCV (80 - 100 fL) 93 MCH (26 - 34 pg) 31 RDW (11.6 - 14.8 %) 13.9 Neut % (Auto) (50 - 75 %) 68.7 Lymph % (Auto) (25 - 40 %) 20.8 [place] % (Auto) (3 - 14 %) 9.4 Eos % (Auto) (0 - 4 %) 0.9 Baso % (Auto) (0 - 2 %) 0.2 Plt Count, EDTA (150 - 400 K/uL) 167 PUBS MCHC (31 - 37 g/dL) 33 Toxicology Urine Opiates Screen (NEGATIVE) NEGATIVE Urine Methadone Screen (NEGATIVE) NEGATIVE Ur Barbiturates Screen (NEGATIVE) NEGATIVE U Amphetamin/Meth Scrn (NEGATIVE) NEGATIVE MDMA (Ecstasy) Screen (NEGATIVE) NEGATIVE U Benzodiazepines Scrn (NEGATIVE) NEGATIVE Urine Cocaine Screen (NEGATIVE) NEGATIVE U Cannabinoids Screen (NEGATIVE) NEGATIVE Urines Urine Color YELLOW Urine Appearance CLEAR Urine pH (5.0 - 8.0) 6.0 Ur Specific [place] (1.010 - 1.030) 1.020 Urine Protein (NEGATIVE) NEGATIVE Urine Ketones (NEGATIVE) NEGATIVE Urine Blood (NEGATIVE) NEGATIVE Urine Nitrite (NEGATIVE) NEGATIVE Urine Bilirubin (NEGATIVE) NEGATIVE Urine Urobilinogen (0.2 - 1.0 EU/dL) 0.2 Ur Leukocyte Esterase (NEGATIVE) NEGATIVE Urine RBC (0 - 1 rbc/hpf) RARE Urine WBC (0 - 1 wbc/hpf) RARE Ur Epithelial Cells (0 - 5 EPI/hpf) 0-1 Urine Bacteria (NONE SEEN) NONE SEEN Urine Glucose (NEGATIVE) NEGATIVE Urine Comment CULT NOT INDICATED 05/02 05/02 05/02 05/02 05/02 1423 1423 1423 1409 1409 Chemistry Lactic Acid (0.4 - 2.0 mmol/L) 2.1 C-Reactive Protein (0.0 - 0.9 mg/dL) < 0.2 Amylase (25 - 115 U/L) 83 Lipase (73 - 393 U/L) 353 Procalcitonin (0 - 0.5 ng/mL) <0.5 TSH 3rd Generation (0.30 - 3.74 uIU/mL) 2.270 Hematology ESR Westergren (0 - 30 mm/hr) 17 05/02 05/02 1345 1345 Chemistry Plasma Sodium (136 - 145 mmol/L) 146 Plasma Potassium (3.5 - 5.1 mmol/L) 3.9 Plasma Chloride (98 - 107 mmol/L) 109 CO2 (Enzymatic) (21 - 32 mmol/L) 27 BUN (7 - 18 mg/dL) 23 Creatinine (0.6 - 1.3 mg/dL) 1.3 Est GFR ( Amer) (mL/min) 50.90 Est GFR (Non-Af Amer) (mL/min) 42.00 Glucose (70 - 110 mg/dL) 183 Plasma Calcium (8.5 - 10.1 mg/dL) 8.8 Plasma Magnesium (1.8 - 2.4 mg/dL) 2.2 Total Bilirubin (0.0 - 1.0 mg/dL) 0.8 AST (15 - 37 U/L) 25 ALT (12 - 78 U/L) 25 Alkaline Phosphatase (46 - 116 U/L) 85 Creatine Kinase (24 - 260 U/L) 56 Troponin (0.00 - 1.5 ng/mL) <0.05 B-Natriuretic Peptide (5 - 100 pg/ml) 217 Total Protein (6.4 - 8.2 g/dL) 6.9 Albumin (3.3 - 5.0 g/dL) 3.3 Coagulation INR (0.8 - 1.2) 1.3 APTT (24 - 34 SECONDS) 32 Hematology WBC (4.5 - 11.5 K/uL) 8.0 RBC (4.00 - 5.20 M/uL) 4.45 Hgb (12.0 - 16.0 gm/dL) 13.7 Hct (36.0 - 46.0 %) 41.7 MCV (80 - 100 fL) 94 MCH (26 - 34 pg) 31 RDW (11.6 - 14.8 %) 14.3 Neut % (Auto) (50 - 75 %) 69.0 Lymph % (Auto) (25 - 40 %) 21.4 [place] % (Auto) (3 - 14 %) 8.6 Eos % (Auto) (0 - 4 %) 0.6 Baso % (Auto) (0 - 2 %) 0.4 Plt Count, EDTA (150 - 400 K/uL) 197 PUBS MCHC (31 - 37 g/dL) 33 Microbiology Date/Time Procedure - Status Source Growth 05/02 1800 MRSA Screen - RECD NOSE Assessment and Plan Problem List 1. Syncope Plan -Patient with history of syncope associated with bradycardia/hypotension -No episodes of lightheadedness today -Bradycardia improved, hypotension resolved -Continue monitoring -Hold beta shauna therapy 2. Afib Plan -Patient with findings of atrial fibrillation with associated bradycardia -Hold Coreg -Monitor -Continue anticoagulation with xarelto -Check BNP in a.m. -Check echocardiogram if not recently performed 3. HTN (hypertension) Plan -Patient with long-standing history of hypertension -Blood pressure improved since admission -Monitor -Low-salt diet 4. PUD (peptic ulcer disease) Plan -Patient with history of peptic ulcer disease -Monitor closely in setting of chronic anticoagulation -No signs of JVD bleeding at this time -Continue Protonix 40 mg by mouth daily 5. Hyperlipidemia Plan -Patient with history of hyperlipidemia -Continue Lipitor -Check lipid profile in a.m. 6. Dementia Plan -Patient with history of dementia -Continue outpatient medical regimen Current status: Fair, unstable Anticipated discharge date: Anticipated discharge in 1-2 days Anticipated discharge placement: Home Patient care time: Time in chart review, patient interview, physical exam, CPOE, and care documentation: 25 minutes mins Visit to patient today: 2 Complexity of care: Moderate DVT prophylaxis: Xarelto E&M Codes Rounding: Inpt-Moderate/14502
[2017-05-03 06:39] VITALS: BP 164/73
[2017-05-03 10:31] VITALS: BP 162/70
[2017-05-03 14:37] VITALS: BP 172/91
[2017-05-03 18:47] VITALS: BP 160/101
[2017-05-03 22:13] VITALS: BP 177/87
[2017-05-04 02:01] VITALS: BP 163/76
[2017-05-04 06:32] VITALS: BP 180/102
--- NOTE | 2017-05-04 08:27 | Progress Note ---
Subjective General Note Date: May 04, 2017 Admission Date: May 02, 2017 Hospital Day: 3 PCP: Bean Chapin Status: Inpatient, ACU Advanced Directive: FULL CODE Room: 301 Admission History: The patient is a 77-year-old female with a significant past make a history of atrial fibrillation, hypertension, peptic ulcer disease, cerebrovascular disease status post CVA, hyperlipidemia, dementia, who presented to [facility] emergency department on the day of admission secondary to complaints of syncope. [facility] ER evaluation was consistent with bradycardia, hypotension, and associated syncope. Secondary to the above, the patient was admitted by Clint Vincent M.D. for further evaluation and treatment. For other history present illness, past medical history, family history, social history, review of systems, and admission physical examination please see the patient's history and physical examination and ER visit note in the patient's medical record. Subjective: The patient states she is doing well. Denies chest pain, shortness of breath, palpitations, or significant weakness. Ambulating without any significant difficulties. No lightheadedness or presyncope noted. Patient requests: Discharged to home Medications and Allergies Medications See MAR Allergies Coded Allergies: NKA (05/02/17) Reconcile Medications Scheduled Medications Atorvastatin Calcium (Lipitor 80 MG) 80 MG TAB 80 MG PO DAILY (Reported) Donepezil Hydrochloride (Donepezil HCl 10 MG) 10 MG TAB 10 MG PO DAILY ( Reported) Losartan Potassium (Cozaar 50 MG) 50 MG TAB 50 MG PO BID (Reported) Magnesium Chloride (Mag64) 64 MG TAB 1 TAB PO BID Memantine Hydrochloride (Namenda 10 MG) 10 MG TAB 28 MG PO DAILY (Reported) Mirtazapine (Mirtazapine 15 MG) 15 MG TAB 15 MG PO QHS (Reported) Pantoprazole Sodium (Pantoprazole Sodium 40 MG) 40 MG TAB 40 MG PO DAILY ( Reported) Rivaroxaban (Xarelto 10 MG) 10 MG TAB 15 MG PO DAILY (Reported) Triamterene & Hydrochlorothiazide 37.5/25 MG (Maxzide-25 25/37.5 MG) TAB 1 TAB PO DAILY Scheduled PRN Medications Docusate Sodium (Docusate Sodium 100 MG) 100 MG CAP 100 MG PO DAILY PRN CONSTIPATION (Reported) Miscellaneous Medications Cranberry (Cranberry Extract) 250 MG TAB (Reported) Simethicone (Gas-X) 80 MG CHW GAS (Reported) Discontinued Medications Carvedilol (Carvedilol 25 MG) 25 MG TAB 25 MG PO DAILY (Reported) Discontinued reason: Not Indicated Physical Exam Vital Signs / I&Os Vital Signs Date Time Temp Pulse Resp B/P Pulse O2 O2 Flow FiO2 Ox Delivery Rate 05/04 0632 98.1 59 18 180/102 93 Room Air 0.0 05/04 0201 98.8 51 16 163/76 99 Room Air 05/04 0105 Room Air 05/03 2213 98.2 101 16 177/87 98 Room Air 05/03 1847 97.7 82 20 160/101 99 Room Air 05/03 1802 Room Air 05/03 1437 97.3 57 19 172/91 100 Room Air 05/03 1031 98.1 69 19 162/70 100 Room Air I&O 05/04 0000 05/03 1600 05/03 0800 Intake Total 1780 064 9312 Output Total 700 1200 450 Balance 457 -722 781 General Appearance Alert, Cooperative, No acute distress Lungs Clear to auscultation Cardiovascular Normal S1 and S2, irregular rhythm, rate controlled Abdomen Normal bowel sounds, Soft, No tenderness Extremities No cyanosis, No clubbing, No edema Neurological Cranial nerves intact, No lateralizing signs Psych/Mental Status Mood normal LAB Results Laboratory Tests 05/04 05/04 05/04 05/03 0520 0520 0520 0905 Chemistry Plasma Sodium (136 - 145 mmol/L) 146 Plasma Potassium (3.5 - 5.1 mmol/L) 2.9 Plasma Chloride (98 - 107 mmol/L) 110 CO2 (Enzymatic) (21 - 32 mmol/L) 29 BUN (7 - 18 mg/dL) 6 Creatinine (0.6 - 1.3 mg/dL) 0.8 Est GFR ( Amer) (mL/min) >60 Est GFR (Non-Af Amer) (mL/min) >60 Glucose (70 - 110 mg/dL) 107 Plasma Calcium (8.5 - 10.1 mg/dL) 7.7 Plasma Magnesium (1.8 - 2.4 mg/dL) 1.5 Iron (35 - 150 ug/dL) 57 TIBC (260 - 445 ug/dL) 226 Iron Saturation (15 - 50 %) 25 Troponin (0.00 - 1.5 ng/mL) <0.05 B-Natriuretic Peptide (5 - 100 pg/ml) 371 Hematology WBC (4.5 - 11.5 K/uL) 6.5 RBC (4.00 - 5.20 M/uL) 3.93 Hgb (12.0 - 16.0 gm/dL) 12.1 Hct (36.0 - 46.0 %) 36.6 MCV (80 - 100 fL) 93 MCH (26 - 34 pg) 31 RDW (11.6 - 14.8 %) 13.8 Neut % (Auto) (50 - 75 %) 68.5 Lymph % (Auto) (25 - 40 %) 20.8 Power % (Auto) (3 - 14 %) 9.1 Eos % (Auto) (0 - 4 %) 1.2 Baso % (Auto) (0 - 2 %) 0.4 Plt Count, EDTA (150 - 400 K/uL) 170 PUBS MCHC (31 - 37 g/dL) 33 Assessment and Plan Problem List 1. Syncope Plan -Resolved -No subsequent syncopal episodes -Patient denies lightheadedness or presyncope 2. Afib Plan -Patient presented with findings of atrial fibrillation with significant symptomatic bradycardia -Patient treated with high-dose Coreg. -Coreg discontinued 2 days with normalization of heart rate. No tachycardia noted. Mild persistent bradycardia and high 40s without associated symptomatology. -Patient discharged on beta shauna to be followed by PCP. Consider Holter monitor on outpatient basis to assess episodes of bradycardia/tachycardia. -Recommend outpatient follow-up with PCP/cardiology per PCPs recommendations 3. HTN (hypertension) Plan -Patient with long-standing history of hypertension. -BP elevated off Coreg. -Patient's antihypertensive regimen modified to Maxzide 25 mg 1 by mouth daily, and losartan 50 mg 1 by mouth twice a day. -BP on discharge 151/70 mmHg -Follow-up with PCP this week for adjustments in antihypertensive regimen. -Low-salt diet recommended on discharge 4. PUD (peptic ulcer disease) Plan -Patient with history of peptic ulcer disease -Not problematic during the patient's hospital stay. -Continue Protonix 40 mg by mouth daily 5. Hyperlipidemia Plan -Patient with history of hyperlipidemia -No further evaluation during the patient's hospital stay. -Continue Lipitor 80 mg by mouth daily -Outpatient follow up with PCP 6. Dementia Plan -Patient with history of dementia -Mild -Continue outpatient medical regimen of Namenda and Aricept -Outpatient follow up with PCP 7. Bradycardia Plan -Patient bradycardia much improved. -Patient no longer orthostatic. -Mild episodes of bradycardia in the high 40s without associated episodes of tachycardia. -Patient discharged off all rate control medications for her atrial fibrillation -Follow up with PCP for reevaluation. Consider Holter monitor to assess ongoing episodes of significant bradycardia/tachycardia. Consider cardiology consultation for significant cardiac rate abnormalities/arrhythmias 8. Hypomagnesemia Status Acute Onset Date Unknown Plan -Patient noted to have findings of hypomagnesemia -Patient discharged on Mag 64 one tab by mouth twice a day -Follow-up with PCP 9. Chronic anticoagulation Status Chronic Onset Date Unknown Plan -Patient on chronic anticoagulation -Xarelto 15 mg by mouth twice a day -Continue current medical regimen -Follow-up with PCP this week 10. Hypokalemia Status Acute Onset Date Unknown Plan -Patient with history of hypokalemia -Resolved -Patient discharged on potassium sparing diuretic in the form of Maxzide 25 1 by mouth daily. -Outpatient follow-up with PCP Current status: Good, improved Anticipated discharge date: Today Anticipated discharge placement: Home Patient care time: Time in chart review, patient interview, physical exam, CPOE, and care documentation: Greater than 30 mins Visit to patient today: 2 Complexity of care: Moderate DVT prophylaxis: Xarelto For other recommendations regarding discharge diet, activity, followup, and discharge medications please see the patient's discharge instructions. Greater than 30 min. was spent in the patient's discharge preparation including discharge interview and physical examination, progress note, discharge instructions, and discharge summary E&M Codes Discharge: Inpt >30 min spent/[id number]
[2017-05-04 10:42] VITALS: BP 188/126
[2017-05-04 11:07] VITALS: BP 198/100
[2017-05-04 13:37] VITALS: BP 151/70
[2017-05-04] MEDS ORDERED: MAXZIDE-25 PO (15:28)
[2017-05-04] MEDS ORDERED: MAG6464 MG PO (15:31)
--- NOTE | 2017-05-04 15:31 | Provider's Discharge Care Plan ---
Problem, Goal, Plan Problem List 1. Afib Goals: Improve disease control, Prevent disease progress Instructions: Follow up as directed, Take meds as directed 2. HTN (hypertension) Goals: Improve disease control, Prevent disease progress Instructions: Follow up as directed, Take meds as directed, Avoid processed foods, Avoid salt. Follow-up with your physician this week for repeat blood pressure check. Have your physician check urine electrolytes due to use of diuretics 3. Hypomagnesemia Goals: Improve disease control, Prevent disease progress Instructions: Follow up as directed, Take meds as directed
--- NOTE | 2017-05-04 15:46 | Discharge Summary ---
Discharge Summary Report Admit Date 05/02/17 Discharge Date 05/04/17 Admission Diagnosis 1. Syncope 2. Bradycardia 3. Hypotension 4. Atrial fibrillation 5. Chronic anticoagulation Discharge Diagnosis 1. Syncope 2. Bradycardia 3. Hypotension 4. Atrial fibrillation 5. Chronic anticoagulation 6. Anemia 7. Hypomagnesemia 8. Hypokalemia Brief History The patient is a 77-year-old female with a significant past make a history of atrial fibrillation, hypertension, peptic ulcer disease, cerebrovascular disease status post CVA, hyperlipidemia, dementia, who presented to [facility] [place] emergency department on the day of admission secondary to complaints of syncope. [facility] [place] ER evaluation was consistent with bradycardia, hypotension, and associated syncope. Secondary to the above, the patient was admitted by Clint Vincent M.D. for further evaluation and treatment. For other history present illness, past medical history, family history, social history, review of systems, and admission physical examination please see the patient's history and physical examination and ER visit note in the patient's medical record. Hospital Course The following problems and their management were noted during the patient's hospitalization: 1. Syncope The patient was admitted with findings of syncope. This was felt secondary to bradycardia/hypotension. This resolved quickly during the patient's hospital stay. There were no subsequent episodes of syncope, presyncope, or lightheadedness. The patient will follow-up with her PCP for ongoing evaluation and treatment this problem. 2. Bradycardia The patient was noted at the time of admission to have significant bradycardia. This occurred in the setting of atrial fibrillation and treatment with Coreg 25 mg by mouth twice a day. The patient's Coreg was held for 2 days with improvement in heart rate. The patient continued to have mild bradycardia in the high 40s post discontinuation of her Coreg. This was asymptomatic. Her blood pressure was adequate. She experienced no significant tachycardia. 3. Hypotension The patient was admitted with findings of hypotension. This resolved with discontinuation of her Coreg. The patient was discharged on an altered antihypertensive regimen of Cozaar 50 mg by mouth twice a day and Maxzide 25 mg 1 by mouth daily. Her blood pressure was adequately controlled on this regimen. She experienced no further hypotension. 4. Atrial fibrillation The patient has a long-standing history of atrial fibrillation. This has not been associated with CHF. She is apparently been treated with Coreg 25 mg by mouth in the past for rate control. Additionally patient has been placed on chronic anticoagulation in the form of xarelto 15 mg by mouth twice a day. She has not experienced any bleeding episodes. The patient was noted to have significant bradycardia on admission with associated hypotension and syncope. Her Coreg was discontinued. Her heart rate improved but she continues to experience mild bradycardia in the high 40s off beta blockers. She was discharged on no rate controlling agents. She should follow-up with her PCP this week with consideration of Holter monitor to assess occult bradycardia/ tachycardia and need for possible pacemaker placement. The patient underwent echocardiogram during her hospital stay. Preliminary report showed no significant left ventricular dysfunction or valvular abnormalities. Final report pending at this time. The patient's echocardiogram will be forward to her PCP when available. 5. Chronic anticoagulation The patient is on chronic anticoagulation secondary to atrial fibrillation. No changes made in admission regimen. Patient discharged on xarelto 15 mg by mouth twice a day. Patient denies any episodes of bleeding. 6. Anemia The patient had findings of mild anemia during her hospital stay. H&H 11.8/ 35.8. Iron studies showed no evidence of iron deficiency anemia. No signs of GI bleeding in the patient's hospital stay. H&H on discharge was normal at 12.1 /36.6. 7. Hypomagnesemia The patient was noted to have findings of hypomagnesemia during her hospital stay. She was placed on magnesium supplementation in the form of Mag 64 one by mouth twice a day on discharge. She should follow-up with her PCP for ongoing evaluation and treatment of this problem. 8. Hypokalemia The patient was noted to have findings of mild hypokalemia during hospital stay. This normalized prior to discharge. She was discharged on potassium sparing diuretic in the form of Maxzide 25 mg 1 oral daily. Lab/Imaging Laboratory Tests 05/04 05/04 05/04 05/04 1427 0520 0520 0520 Chemistry Plasma Sodium (136 - 145 mmol/L) 145 146 Plasma Potassium (3.5 - 5.1 mmol/L) 3.5 2.9 Plasma Chloride (98 - 107 mmol/L) 110 110 CO2 (Enzymatic) (21 - 32 mmol/L) 27 29 BUN (7 - 18 mg/dL) 5 6 Creatinine (0.6 - 1.3 mg/dL) 0.9 0.8 Est GFR ( Amer) (mL/min) >60 >60 Est GFR (Non-Af Amer) (mL/min) >60 >60 Glucose (70 - 110 mg/dL) 148 107 Plasma Calcium (8.5 - 10.1 mg/dL) 8.0 7.7 Plasma Magnesium (1.8 - 2.4 mg/dL) 1.5 Iron (35 - 150 ug/dL) 57 TIBC (260 - 445 ug/dL) 226 Iron Saturation (15 - 50 %) 25 B-Natriuretic Peptide (5 - 100 pg/ml) 371 Hematology WBC (4.5 - 11.5 K/uL) 6.5 RBC (4.00 - 5.20 M/uL) 3.93 Hgb (12.0 - 16.0 gm/dL) 12.1 Hct (36.0 - 46.0 %) 36.6 MCV (80 - 100 fL) 93 MCH (26 - 34 pg) 31 RDW (11.6 - 14.8 %) 13.8 Neut % (Auto) (50 - 75 %) 68.5 Lymph % (Auto) (25 - 40 %) 20.8 [place] % (Auto) (3 - 14 %) 9.1 Eos % (Auto) (0 - 4 %) 1.2 Baso % (Auto) (0 - 2 %) 0.4 Plt Count, EDTA (150 - 400 K/uL) 170 PUBS MCHC (31 - 37 g/dL) 33 Discharge Instructions/Meds For other recommendations regarding discharge diet, activity, followup, and discharge medications please see the patient's discharge instructions. Discharge condition: Fair, improved Greater than 30 min. was spent in the patient's discharge preparation including discharge interview and physical examination, progress note, discharge instructions, and discharge summary The patient was interviewed and examined on the day of discharge. E&M Codes Discharge: Inpt >30 min spent/[id number]
--- NOTE | 2017-05-06 12:48 | DIAGNOSTIC IMAGING REPORT ---
REFERRING PHYSICIAN/PROVIDER: Pierre Patiño MD [employer] INTERPRETER: Reggie Beasley MD PROCEDURE: M-mode 2D echocardiography with spectral and color flow Doppler TECHNICAL QUALITY: Good image quality. INDICATION: afib, chf RHYTHM DURING PROCEDURE: Atrial fibrillation with good rate control. INTERPRETATIONS: LEFT VENTRICLE: The left ventricular chamber size is within normal limits. There is mild to moderate concentric left ventricular hypertrophy. The interventricular septum is measured at 1.4 cm and the left ventricular posterior wall is measured at 1.2 cm. The LV ejection fraction is normal with an estimated ejection fraction of 55-60%. There is no gross findings for focal wall motion abnormalities. RIGHT VENTRICLE: The right ventricular chamber size and systolic function are both within normal limits. There is mild right ventricular hypertrophy with the right ventricular free wall measuring at 0.7 cm. ATRIA: The left atrium is mildly enlarged in the right atrial chamber size is grossly normal. The interatrial septum shows no evidence of shunting by color Doppler. MITRAL VALVE: The mitral valve structure is normal bowel with abnormal function. There is mild mitral regurgitation. AORTIC VALVE: The aortic valve is trileaflet. There is no evidence of aortic regurgitation. There is mild aortic sclerosis without stenosis. TRICUSPID VALVE: There is mild tricuspid regurgitation. PULMONIC VALVE: The pulmonic valve is grossly normal. There is trace pulmonic regurgitation. GREAT VESSELS: The aortic root is normal size. The ascending aorta is mildly enlarged at 3.6 cm. The IVC is of normal size and collapses more than 50% during respiration. This is consistent with a low right atrial pressure suggestive of a right atrial pressure of 3 mmHg. PERICARDIUM: There is at most trivial pericardial effusion. IMPRESSION: 1. Normal LV ejection fraction without any overt findings for LV wall motion abnormalities. LV diastolic function could not be assessed due to atrial fibrillation. There is mild to moderate concentric left ventricular hypertrophy. 2. The right ventricular chamber size and systolic function are both within normal limits. The right ventricular systolic pressure is estimated at 38 mmHg assuming a right atrial pressure of 3 mmHg. There is findings for possible right ventricular hypertrophy that is mild in severity. 3. No significant valvular abnormalities. 4. There is mild enlargement of the ascending aorta measuring at 3.6 cm.
== END 2017-05-04 17:00 | disposition home or self-care (01) | DRG 312 ==
LOC: ED SRH 13:34 → TRANS SRH 16:10 → ACUTE2 SRH 16:10 → CC SRH 17:57 → ACUTE2 SRH 05-03 17:41
PROVIDERS: ADMIT Neuromusculoskeletal Medicine, Sports Medicine
DX: I95.2 Hypotension due to drugs (principal); T44.7X5A Adverse effect of beta-adrenoreceptor antagonists, initial encounter; R00.1 Bradycardia, unspecified; R55 Syncope and collapse; I48.2 Chronic atrial fibrillation; Z79.01 Long term (current) use of anticoagulants; D64.9 Anemia, unspecified; E83.42 Hypomagnesemia; E87.6 Hypokalemia; I10 Essential (primary) hypertension; E78.5 Hyperlipidemia, unspecified; F03.90 Unspecified dementia, unspecified severity, without behavioral disturbance, psychotic disturbance, mood disturbance, and anxiety; Z86.73 Personal history of transient ischemic attack (TIA), and cerebral infarction without residual deficits
CPT/HCPCS: 85244; 90004; 90047; 90074; 90100; 90616; 91320; 91585; 92031; 92132; 92235; 92530; 92610; 92668; 92670; 92720; 92760; 92761; 92762; 92763; 92764; 92765; 92766; 92767; 93004; 93140; 94001; 94060; 95059; 95150